=== PATIENT | male | born 2005 | race Caucasian/White ===

== ENCOUNTER 2023-06-06 01:25 | Emergency (ER) | payer SELFPAY ==
[2023-06-06] MEDS ORDERED: Sodium Chloride 0.9% 1,000 ML ONE (01:44)
[2023-06-06] MEDS ORDERED: Ketorolac Tromethamine 30 MG/ML VIAL ONE (01:44)
[2023-06-06] MEDS ORDERED: Ondansetron PF 4 MG/2 ML Vial ONE ×2 (01:44→03:14)
[2023-06-06 01:53] LABS: #Basophils 0.1 thou/uL (0.0-0.2); #Eosinphils 0.4 thou/uL (0.0-0.7); #Lymphocytes 3.2 thou/uL (1.20-3.40); #Monocytes 0.8 thou/uL (0.11-0.59); #Neutrophils 11.7 thou/uL (1.40-6.50); %Basophils 0.7 % (0.0-1.0); %Eosinophils 2.3 % (0.0-10.0); %Lymphocytes 19.6 % (28.0-48.0); %Neutrophils 72.4 % (31.0-61.0); Hematocrit 44.8 % (42.0-52.0); Mean Corpuscular HGB CONC 33.5 g/dL (32.0-36.0); Mean Corpuscular Hemoglobin 31.1 pg (25.0-35.0); Mean Platelet Volume 7.8 fL (7.4-10.4); Platelet Count 310 10x3/uL (130-400); RBC Distribution Width 10.8 % (11.5-14.5); Red Blood Cell (RBC) Count 4.81 mill/uL (4.00-5.20); White Blood Cell (WBC) Count 16.2 10x3/uL (4.8-10.8)
[2023-06-06 02:08] LABS: ALT (SGPT) 13 U/L (8-55); AST (SGOT) 16 U/L (5-34); Albumin 4.7 g/dL (3.5-5.0); Alkaline Phosphatase 81 U/L (50-130); Anion Gap 20 mmol/L (10-20); BUN (Urea Nitrogen) 10 mg/dL (8.9-20.6); Bilirubin, Total 0.5 mg/dL (0.2-1.2); Calc. Creatinine Clearance 0 mL/min (70-130); Calcium 9.5 mg/dL (7.8-10.44); Carbon Dioxide 17 mmol/L (22-29); Chloride 106 mmol/L (98-107); Estimated GFR 97; Glucose 182 mg/dL (70-105); Potassium 3.2 mmol/L (3.5-5.1); Protein, Total 7.7 g/dL (6.0-8.3); Sodium 140 mmol/L (136-145)
[2023-06-06] MEDS ORDERED: Tamsulosin HCl 0.4 MG CAP ONE (02:37)
[2023-06-06] MEDS ORDERED: traMADol HCl 50 MG TAB ONE (02:48)
[2023-06-06] MEDS ORDERED: Morphine 2 MG/ML VIAL ONE (02:48)
[2023-06-06 03:20] LABS: Bilirubin Negative (Negative); Blood, Urine Negative (Negative); Clarity Clear (Clear); Glucose, Urine (Dipstick) 100 mg/dL (Negative); Ketone, Urine 15 mg/dL (Negative); Leukocyte Negative (Negative); Nitrite Negative (Negative); Protein, Urine (Dipstick) Negative (Neg-Trace); Specific Gravity, Urine 1.025 (1.005-1.030); Urobilinogen 0.2 mg/dL (Less than 2)
[2023-06-06 03:23] LABS: Bacteria/HPF None Seen HPF (None Seen); CAUTI Indications for Culture Pelvic or flank pain; RBC/HPF None Seen HPF (0-3); Squamous Epithelial None Seen HPF (0-3); Urine Culture Reflex No No; WBC/HPF None Seen HPF (0-3)
[2023-06-06 17:19] LABS: Hemoglobin A1c 5.5 % (4.0-6.0)
== END 2023-06-06 03:42 | disposition home or self-care (01) ==
LOC: NAV ERS 01:25
DX: N13.2 Hydronephrosis with renal and ureteral calculous obstruction (principal); F17.290 Nicotine dependence, other tobacco product, uncomplicated; R73.9 Hyperglycemia, unspecified
CPT/HCPCS: 74176; 80053; 81001; 83036; 85025; 96361; 96374; 96375; 96376; J1885; J2272; J2405; J7050